=== PATIENT | female | born 1990 | race Two or more races ===

== ENCOUNTER 2017-06-13 16:44 | Emergency (ER) | payer OTHER ==
--- NOTE | 2017-06-13 19:31 | RAD ---
INDICATION: Early intrauterine gestation slow heart rate and large yolk sac COMPARISON: None TECHNIQUE: Transvaginal scans were performed before evaluation FINDINGS: The endovascular study confirms the presence of an intrauterine gestation with a prominent yolk sac. There is cardiac activity of 99 bpm. The age of gestation is between 6 weeks 3 days and 6 weeks 4 days based on the pole and gestational sac size. Both adnexa appear normal. The right ovary measures 4.3 x 2.2 x 1.4 cm in the left 4.2 x 2.5 x 2.8 cm. There is a small cyst on the left. IMPRESSION: EARLY INTRAUTERINE GESTATION. THERE IS A SLOW HEART RATE AND THERE IS A PROMINENT YOLK SAC. SUGGEST CLOSE FOLLOW-UP TO EVALUATE FOR VIABILITY.
[2017-06-13 19:47] LABS: Hematocrit 36 % (35-47); Hemoglobin 12.2 g/dl (12.0-16.0); Mean Corpuscular HGB Conc 34 g/dl (31-36); Mean Corpuscular Hemoglobin 32 pg (27-31); Mean Corpuscular Volume 95 fL (80-97); Mean Platelet Volume 8 um3 (7.4-10.4); Red Blood Count 3.84 10^6/ul (4.0-5.4); Red Cell Distribution Width 14 % (10.5-15); White Blood Count 10.2 10^3/ul (3.5-10.8)
[2017-06-13 20:02] LABS: BUN/Creatinine Ratio 22.1 (8-20); Calcium 9.6 mg/dL (8.6-10.3); EGFR African American 131.6 (>60); EGFR Non-African American 102.3 (>60); Potassium 4.1 mmol/L (3.5-5.0); Total Bilirubin 0.3 mg/dL (0.2-1.0)
--- NOTE | 2017-06-13 20:29 | ED ---
- HPI Summary HPI Summary: 27F at 6 weeks presents for u/s and lab work due [facility]. They saw a slow heart rate and an enlarged york sac on the u/s. She denies any vaginal bleeding or pain. no n/v/d. no dysuria, flank pain , urgency, or frequency. previous was a medical . This was the first u/s for this . no vaginal discharge. no fevers. is A+ - History of Current Complaint Chief Complaint: EDOBProblems Stated Complaint: ABNORMAL [facility]S [facility] Time Seen by Provider: 06/13/17 18:14 Pain Intensity: 0 - Assessment Hx Now: No - Allergies/Home Medications Allergies/Adverse Reactions: Allergies Allergy/AdvReac Type Severity Reaction Status Date / Time No Known Allergies Allergy Verified 05/11/13 19:42 PMH/Surg Hx/FS Hx/Imm Hx Endocrine/Hematology History: Denies: Hx Diabetes, Hx Thyroid Disease Cardiovascular History: Denies: Hx Hypertension Respiratory History: Denies: Hx Asthma, Hx Chronic Obstructive Pulmonary Disease (COPD) GI History: Denies: Hx Ulcer Infectious Disease History: No Infectious Disease History: Denies: Hx Hepatitis, Hx Human Immunodeficiency Virus (HIV), Traveled Outside the US in Last 30 Days - Family History Known Family History: Negative: Blood Disorder - Social History Alcohol Use: None Substance Use Type: Reports: None Smoking Status (MU): Never Smoked Tobacco Review of Systems Negative: Fever Negative: Chest Pain Negative: Shortness Of Breath Positive: Other - abnormal pregancy u/s. Negative: Abdominal Pain, Vomiting, Nausea All Other Systems Reviewed And Are Negative: Yes Physical Exam - Physical Exam Triage Information Reviewed: Yes Vital Signs Reviewed: Yes Appearance: Positive: Well-Appearing Skin: Positive: Warm, Dry Head/Face: Positive: Normal Head/Face Inspection Eyes: Positive: Normal, EOMI, STEPHANIE, Conjunctiva Clear ENT: Positive: Normal ENT inspection, Pharynx normal, TMs normal Respiratory/Lung Sounds: Positive: Clear to Auscultation, Breath Sounds Present Cardiovascular: Positive: Normal, RRR Abdomen Description: Positive: Nontender, Soft Bowel Sounds: Positive: Present Musculoskeletal: Positive: Normal Neurological: Positive: Normal Psychiatric: Positive: Normal Diagnostics - Vital Signs Vital Signs Temp Pulse Resp BP Pulse Ox 06/13/17 16:49 98.1 F 77 20 126/70 100 - Laboratory Lab Results: Lab Results 06/13/17 06/13/17 06/13/17 Range/Units 19:36 19:36 19:36 WBC 10.2 (3.5-10.8) 10^3/ul RBC 3.84 L (4.0-5.4) 10^6/ul Hgb 12.2 (12.0-16.0) g/dl Hct 36 (35-47) % MCV 95 (80-97) fL MCH 32 H (27-31) pg MCHC 34 (31-36) g/dl RDW 14 (10.5-15) % Plt Count 271 (150-450) 10^3/ul MPV 8 (7.4-10.4) um3 Neut % (Auto) 59.7 (38-83) % Lymph % (Auto) 30.3 (25-47) % [place] % (Auto) 8.1 (1-9) % Eos % (Auto) 1.1 (0-6) % Baso % (Auto) 0.8 (0-2) % Absolute Neuts (auto) 6.1 (1.5-7.7) 10^3/ul Absolute Lymphs (auto) 3.1 (1.0-4.8) 10^3/ul Absolute Monos (auto) 0.8 (0-0.8) 10^3/ul Absolute Eos (auto) 0.1 (0-0.6) 10^3/ul Absolute Basos (auto) 0.1 (0-0.2) 10^3/ul Absolute Nucleated RBC 0.01 10^3/ul Nucleated RBC % 0.1 INR (Anticoag Therapy) 0.88 L (0.89-1.11) APTT 27.0 (26.0-36.3) seconds Sodium (133-145) mmol/L Potassium (3.5-5.0) mmol/L Chloride (101-111) mmol/L Carbon Dioxide (22-32) mmol/L Anion Gap (2-11) mmol/L BUN (6-24) mg/dL Creatinine (0.51-0.95) mg/dL Est GFR ( Amer) (>60) Est GFR (Non-Af Amer) (>60) BUN/Creatinine Ratio (8-20) Glucose (70-100) mg/dL Calcium (8.6-10.3) mg/dL Total Bilirubin (0.2-1.0) mg/dL AST (13-39) U/L ALT (7-52) U/L Alkaline Phosphatase (34-104) U/L Total Protein (6.4-8.9) g/dL Albumin (3.2-5.2) g/dL Globulin (2-4) g/dL Albumin/Globulin Ratio (1-3) Beta HCG, Quant Blood Type A Positive 06/13/17 Range/Units 19:36 WBC (3.5-10.8) 10^3/ul RBC (4.0-5.4) 10^6/ul Hgb (12.0-16.0) g/dl Hct (35-47) % MCV (80-97) fL MCH (27-31) pg MCHC (31-36) g/dl RDW (10.5-15) % Plt Count (150-450) 10^3/ul MPV (7.4-10.4) um3 Neut % (Auto) (38-83) % Lymph % (Auto) (25-47) % [place] % (Auto) (1-9) % Eos % (Auto) (0-6) % Baso % (Auto) (0-2) % Absolute Neuts (auto) (1.5-7.7) 10^3/ul Absolute Lymphs (auto) (1.0-4.8) 10^3/ul Absolute Monos (auto) (0-0.8) 10^3/ul Absolute Eos (auto) (0-0.6) 10^3/ul Absolute Basos (auto) (0-0.2) 10^3/ul Absolute Nucleated RBC 10^3/ul Nucleated RBC % INR (Anticoag Therapy) (0.89-1.11) APTT (26.0-36.3) seconds Sodium 134 (133-145) mmol/L Potassium 4.1 (3.5-5.0) mmol/L Chloride 105 (101-111) mmol/L Carbon Dioxide 24 (22-32) mmol/L Anion Gap 5 (2-11) mmol/L BUN 15 (6-24) mg/dL Creatinine 0.68 (0.51-0.95) mg/dL Est GFR ( Amer) 131.6 (>60) Est GFR (Non-Af Amer) 102.3 (>60) BUN/Creatinine Ratio 22.1 H (8-20) Glucose 98 (70-100) mg/dL Calcium 9.6 (8.6-10.3) mg/dL Total Bilirubin 0.30 (0.2-1.0) mg/dL AST 18 (13-39) U/L ALT 25 (7-52) U/L Alkaline Phosphatase 35 (34-104) U/L Total Protein 7.0 (6.4-8.9) g/dL Albumin 4.0 (3.2-5.2) g/dL Globulin 3.0 (2-4) g/dL Albumin/Globulin Ratio 1.3 (1-3) Beta HCG, Quant Pending Blood Type Result Diagrams: 06/13/17 19:36 06/13/17 19:36 Lab Statement: Any lab studies that have been ordered have been reviewed, and results considered in the medical decision making process. - Ultrasound No standard instances Ultrasound Interpretation: Positive (See Comments) - IMPRESSION: EARLY INTRAUTERINE GESTATION. THERE IS A SLOW HEART RATE AND THERE IS A PROMINENT YOLK SAC. SUGGEST CLOSE FOLLOW-UP TO EVALUATE FOR VIABILITY. Ultrasound Interpretation Completed By: Radiologist Course/Dx - Course Course Of Treatment: 27F at 6 weeks presents for u/s and lab work due [facility]. They saw a slow heart rate and an enlarged york sac on the u/s. She denies any vaginal bleeding or pain. no n/v/ d. no dysuria, flank pain, urgency, or frequency. previous was a medical . This was the first u/s for this . no vaginal discharge. no fevers. nontender abdomen. u/s shows THERE IS A SLOW HEART RATE AND THERE [place] [id number]. will need follow up in 48 hours for repeat labs. patient undertands and agrees with plan. - Differential Diagnosis/HQI/PQRI: Spontaneous , Threatened , Intrauterine - Diagnoses Provider Diagnoses: Intrauterine Discharge - Discharge Plan Condition: Good Disposition: HOME Patient Education Materials: Threatened Miscarriage (ED) Referrals: No Primary Care Phys,NOPCP [Primary Care Provider] - Torito Baca MD [Medical Doctor] - Additional Instructions: The education provided is for your information. You may or may not have a miscarriage at this point. Follow up with OBGYN as will need repeat HCG level drawn to trend Return to ED if develop severe abdominal pain, fever, severe bleeding with symptoms such as lightheadedness or any new or worsening symptoms
[2017-06-13 20:48] VITALS: BP 119/73
[2017-06-13 21:14] LABS: Urine Bilirubin Negative (Negative); Urine Glucose Negative (Negative); Urine Nitrite Negative (Negative)
== END 2017-06-13 21:01 | disposition home or self-care (01) ==
LOC: ED 16:44
DX: Z34.81 Encounter for supervision of other normal pregnancy, first trimester (principal)
CPT/HCPCS: 36415; 76817; 80053; 81003; 84702; 85025; 85610; 85730; 86900; 86901; 99284

== ENCOUNTER 2017-07-20 22:53 | Emergency (ER) | payer OTHER ==
[2017-07-20] MEDS ORDERED: Morphine INJ* 4 MG/ML 1 ML CARPUJECT IV ONE (23:26)
[2017-07-21 00:23] LABS: Hematocrit 33 % (35-47); Hemoglobin 11.4 g/dl (12.0-16.0); Mean Corpuscular HGB Conc 34 g/dl (31-36); Mean Corpuscular Hemoglobin 32 pg (27-31); Mean Corpuscular Volume 94 fL (80-97); Mean Platelet Volume 8 um3 (7.4-10.4); Red Blood Count 3.55 10^6/ul (4.0-5.4); Red Cell Distribution Width 14 % (10.5-15); White Blood Count 10.7 10^3/ul (3.5-10.8)
[2017-07-21 00:33] LABS: BUN/Creatinine Ratio 21.7 (8-20); Calcium 9.2 mg/dL (8.6-10.3); EGFR African American 129.4 (>60); EGFR Non-African American 100.6 (>60); Globulin 2.8 g/dL (2-4); Potassium 3.7 mmol/L (3.5-5.0); Total Bilirubin 0.4 mg/dL (0.2-1.0); Total Protein 6.8 g/dL (6.4-8.9)
[2017-07-21] MEDS ORDERED: NS 0.9% 1000 ML* 1,000 ML IV ONE (01:01)
--- NOTE | 2017-07-21 03:43 | ED ---
De Su Nikita, scribed for Rakesh Kim MD on 07/20/17 at 2314 . GI/ HPI - HPI Summary HPI Summary: This patient is a 27 year old F BIBA to ED with a chief complaint of miscarriage since earlier today. Pt is 12 weeks . Pt has been having miscarriage x3 weeks and was due to have a D&C in 3 days. Bleeding and pain increased today at 1830. The CC is described as intermittent. The patient rates the pain 10/10 in severity. Symptoms aggravated by nothing. Symptoms alleviated by nothing. Patient reports vomiting, chills, vaginal bleeding and clotting, passing tissue, lower abdominal pain and cramping, and back pain. Patient denies fowl smells or urinary symptoms. - History of Current Complaint Chief Complaint: EDOBProblems Stated Complaint: POSS MISSCARRIAGE Hx Obtained From: Patient Hx Last Menstrual Period: 2 weeks ago Onset/Duration: Started Days Ago, Still Present Timing: Constant, Lasting Days Severity: Severe Current Severity: Severe Vaginal Bleeding Description: Clots Pain Intensity: 10 Location of Pain: Other - lower abdomen Associated Signs and Symptoms: Positive: Other: - Patient reports vomiting, chills, vaginal bleeding and clotting, passing tissue, lower abdominal pain and cramping, and back pain. Patient denies fowl smells or urinary symptoms. - Allergy/Home Medications Allergies/Adverse Reactions: Allergies Allergy/AdvReac Type Severity Reaction Status Date / Time No Known Allergies Allergy Verified 05/11/13 19:42 PMH/Surg Hx/FS Hx/Imm Hx Endocrine/Hematology History: Denies: Hx Diabetes, Hx Thyroid Disease Cardiovascular History: Denies: Hx Hypertension Respiratory History: Denies: Hx Asthma, Hx Chronic Obstructive Pulmonary Disease (COPD) GI History: Denies: Hx Ulcer Infectious Disease History: No Infectious Disease History: Denies: Hx Hepatitis, Hx Human Immunodeficiency Virus (HIV), Traveled Outside the US in Last 30 Days - Family History Known Family History: Negative: Blood Disorder - Social History Alcohol Use: None Substance Use Type: Reports: None Smoking Status (MU): Never Smoked Tobacco Review of Systems Positive: Chills Positive: Abdominal Pain - lower abdominal pain and cramping, Vomiting Positive: other - vaginal bleeding and clotting, passing tissue; denies fowl smells and other urinary symptoms Positive: Other - back pain All Other Systems Reviewed And Are Negative: Yes Physical Exam Triage Information Reviewed: Yes Vital Signs On Initial Exam: Initial Vitals BP 119/70 07/20/17 23:05 Vital Signs Reviewed: Yes Appearance: Positive: Well-Appearing - Speaking full sentences, Well-Nourished, Pain Distress - Pt is exhibiting pain and mild distress Skin: Positive: Warm, Dry, Other - no rash Head/Face: Positive: Normal Head/Face Inspection Eyes: Positive: Normal ENT: Positive: Normal ENT inspection Neck: Positive: Supple, Nontender Respiratory/Lung Sounds: Positive: Clear to Auscultation Cardiovascular: Positive: Normal, Other - Normal peripheral pulses Abdomen Description: Positive: Soft, Other: - Generalized lower abdominal tenderness Bowel Sounds: Positive: Present Musculoskeletal: Positive: Normal, Strength/ROM Intact Neurological: Positive: Normal, Alert, Oriented to Person Place, Time Psychiatric: Positive: Normal Diagnostics - Vital Signs Vital Signs Temp Pulse Resp BP Pulse Ox 07/20/17 23:07 65 98 07/20/17 23:06 99.2 F 88 16 119/70 98 07/20/17 23:05 119/70 - Laboratory Lab Results: Lab Results 07/20/17 07/20/17 07/20/17 Range/Units 23:55 23:55 23:55 WBC 10.7 (3.5-10.8) 10^3/ul RBC 3.55 L (4.0-5.4) 10^6/ul Hgb 11.4 L (12.0-16.0) g/dl Hct 33 L (35-47) % MCV 94 (80-97) fL MCH 32 H (27-31) pg MCHC 34 (31-36) g/dl RDW 14 (10.5-15) % Plt Count 317 (150-450) 10^3/ul MPV 8 (7.4-10.4) um3 Neut % (Auto) 87.4 H (38-83) % Lymph % (Auto) 8.9 L (25-47) % [place] % (Auto) 3.2 (1-9) % Eos % (Auto) 0.1 (0-6) % Baso % (Auto) 0.4 (0-2) % Absolute Neuts (auto) 9.4 H (1.5-7.7) 10^3/ul Absolute Lymphs (auto) 1.0 (1.0-4.8) 10^3/ul Absolute Monos (auto) 0.3 (0-0.8) 10^3/ul Absolute Eos (auto) 0 (0-0.6) 10^3/ul Absolute Basos (auto) 0 (0-0.2) 10^3/ul Absolute Nucleated RBC 0 10^3/ul Nucleated RBC % 0 INR (Anticoag Therapy) 0.96 (0.77-1.02) APTT 27.0 (26.0-36.3) seconds Sodium 139 (133-145) mmol/L Potassium 3.7 (3.5-5.0) mmol/L Chloride 109 (101-111) mmol/L Carbon Dioxide 23 (22-32) mmol/L Anion Gap 7 (2-11) mmol/L BUN 15 (6-24) mg/dL Creatinine 0.69 (0.51-0.95) mg/dL Est GFR ( Amer) 129.4 (>60) Est GFR (Non-Af Amer) 100.6 (>60) BUN/Creatinine Ratio 21.7 H (8-20) Glucose 115 H (70-100) mg/dL Lactic Acid (0.5-2.0) mmol/L Calcium 9.2 (8.6-10.3) mg/dL Total Bilirubin 0.40 (0.2-1.0) mg/dL AST 22 (13-39) U/L ALT 28 (7-52) U/L Alkaline Phosphatase 28 L (34-104) U/L Total Protein 6.8 (6.4-8.9) g/dL Albumin 4.0 (3.2-5.2) g/dL Globulin 2.8 (2-4) g/dL Albumin/Globulin Ratio 1.4 (1-3) Blood Type Antibody Screen 07/20/17 07/21/17 Range/Units 23:55 03:03 WBC (3.5-10.8) 10^3/ul RBC (4.0-5.4) 10^6/ul Hgb (12.0-16.0) g/dl Hct (35-47) % MCV (80-97) fL MCH (27-31) pg MCHC (31-36) g/dl RDW (10.5-15) % Plt Count (150-450) 10^3/ul MPV (7.4-10.4) um3 Neut % (Auto) (38-83) % Lymph % (Auto) (25-47) % [place] % (Auto) (1-9) % Eos % (Auto) (0-6) % Baso % (Auto) (0-2) % Absolute Neuts (auto) (1.5-7.7) 10^3/ul Absolute Lymphs (auto) (1.0-4.8) 10^3/ul Absolute Monos (auto) (0-0.8) 10^3/ul Absolute Eos (auto) (0-0.6) 10^3/ul Absolute Basos (auto) (0-0.2) 10^3/ul Absolute Nucleated RBC 10^3/ul Nucleated RBC % INR (Anticoag Therapy) (0.77-1.02) APTT (26.0-36.3) seconds Sodium (133-145) mmol/L Potassium (3.5-5.0) mmol/L Chloride (101-111) mmol/L Carbon Dioxide (22-32) mmol/L Anion Gap (2-11) mmol/L BUN (6-24) mg/dL Creatinine (0.51-0.95) mg/dL Est GFR ( Amer) (>60) Est GFR (Non-Af Amer) (>60) BUN/Creatinine Ratio (8-20) Glucose (70-100) mg/dL Lactic Acid 0.8 (0.5-2.0) mmol/L Calcium (8.6-10.3) mg/dL Total Bilirubin (0.2-1.0) mg/dL AST (13-39) U/L ALT (7-52) U/L Alkaline Phosphatase (34-104) U/L Total Protein (6.4-8.9) g/dL Albumin (3.2-5.2) g/dL Globulin (2-4) g/dL Albumin/Globulin Ratio (1-3) Blood Type A Positive Antibody Screen Negative Result Diagrams: 07/20/17 23:55 07/20/17 23:55 Lab Statement: Any lab studies that have been ordered have been reviewed, and results considered in the medical decision making process. - Ultrasound No standard instances Ultrasound Interpretation Completed By: Radiologist - US reveals a 2.6 cm x 1.9 cm x 3.1 cm (7 weeks 5 days) gestational sac is seen in the vaginal canal. No pole is observed. There are blood products in the cervical canal. These findings represent failed gestation with expulsion of the gestational sac. Normal ovaries bilaterally. ED physician has reviewed this radiology report and agrees. Re-Evaluation - Re-Evaluation First Eval Change: Improved - much improved after meds and fluids GIGU Course/Dx - Course Assessment/Plan: Instructions to follow up with an clinical nurse occupational medicine for re-eval and US. Pt agrees to and understands discharge instructions. - Diagnoses Differential Diagnoses - Female: Other - incomplete Provider Diagnoses: Incomplete Discharge - Discharge Plan Condition: Stable Disposition: HOME Prescriptions: Ondansetron ODT TAB* [Zofran 4 MG Odt TAB*] 4 mg PO Q6H PRN #10 tab.odt PRN Reason: Nausea oxyCODONE/Acetamin 5/325 MG* [Percocet 5/325 TAB*] 1 tab PO Q6H PRN #10 tab MDD 4 tab PRN Reason: Pain - Moderate To Severe Patient Education Materials: Miscarriage (ED) Referrals: [facility] [Provider Group] - 7 Days Clay Corrigan MD [Medical Doctor] - 7 Days Additional Instructions: PLEASE SEE YOUR BASS [facility]ING [facility]ER PREVIOUSLY SCHEDULE FOR YOUR D+C PROCEDURE PLEASE RETURN TO THE ED FOR ANY WORSENING OR CONCERNING SYMPTOMS. PLEASE MAKE AN APPOINTMENT TO SEE YOUR PRIMARY CARE DOCTOR TO BE SEEN WITHIN 1 WEEK. The documentation as recorded by the De wan Nikita accurately reflects the service I personally performed and the decisions made by Julio parham Dong, MD.
[2017-07-21] MEDS ORDERED: oxyCODONE/Acetamin 5/325 MG* TAB PO ONE (03:56)
[2017-07-21] MEDS ORDERED: Ondansetron ODT TAB* 4 MG PO ONE (03:57)
[2017-07-21] MEDS ORDERED: oxyCODONE/Acetamin 5/325 MG* TAB ONE (03:59)
[2017-07-21 04:09] VITALS: BP 97/62
--- NOTE | 2017-07-21 08:03 | RAD ---
HISTORY: Vaginal bleeding, , gestational age by previous ultrasound of 11 weeks and 1 day COMPARISONS: June 13, 2017 TECHNIQUE: Multiple transverse and longitudinal ultrasound images were obtained of the pelvis using grayscale and color Doppler imaging using the endovaginal transducer. FINDINGS: UTERUS: The uterus is normal in shape, size, contour, and echotexture. GESTATION: A gestational sac is identified, without pole. The gestational sac is low within the lower cervix/upper vagina.. The mean sac diameter measures 2.52 cm for a gestational age of 7 weeks, 5 days. The SHAI is March 03, 2015. This is discordant with the previous examination.. cardiac motion is not detected. Gross movement is not identified. anatomy cannot be assessed secondary to early dates. There are no retroplacental fluid collections. CUL-DE-SAC: There is no free fluid within the cul-de-sac. RIGHT OVARY: The right ovary measures 3.9 x 3.1 x 2.3 cm. LEFT OVARY: The left ovary measures 4.2 x 2.2 x 2.7 cm. BLADDER: The bladder is not well visualized. IMPRESSION: A LOW-LYING GESTATIONAL SAC IS NOTED WITHOUT POLE. THE GESTATIONAL SAC SIZE IS DISCORDANT WITH AGE BY DATES. THE APPEARANCE IS MOST CONSISTENT WITH AN IN PROGRESS. RECOMMEND ATTENTION ON FOLLOW-UP IMAGING
== END 2017-07-21 04:09 | disposition home or self-care (01) ==
LOC: ED 22:53
DX: O03.4 Incomplete spontaneous abortion without complication (principal); R10.30 Lower abdominal pain, unspecified; R68.83 Chills (without fever); M54.9 Dorsalgia, unspecified
CPT/HCPCS: 36415; 76801; 80053; 83605; 84702; 85025; 85610; 85730; 86850; 86900; 86901; 99284; A9270-GY; J2270

== ENCOUNTER 2018-01-27 20:49 | Emergency (ER) | payer SELFPAY ==
[2018-01-27] MEDS ORDERED: NS 0.9% 1000 ML* 1,000 ML IV ONE (22:24)
[2018-01-27] MEDS ORDERED: Ondansetron ODT TAB* 4 MG PO ONE (22:39)
[2018-01-27 22:50] LABS: ABS Basophils 0 10^3/ul (0-0.2); ABS Eosinophils 0 10^3/ul (0-0.6); ABS Lymphocytes 1.2 10^3/ul (1.0-4.8); ABS Monocytes 0.4 10^3/ul (0-0.8); ABS Neutrophils 7.1 10^3/ul (1.5-7.7); ABS Nucleated RBC 0 10^3/ul; Eosinophil % 0 % (0-6); Hematocrit 42 % (35-47); Hemoglobin 14.3 g/dl (12.0-16.0); Lymphocyte % 13.5 % (25-47); Mean Corpuscular HGB Conc 34 g/dl (31-36); Mean Corpuscular Hemoglobin 32 pg (27-31); Mean Corpuscular Volume 93 fL (80-97); Nucleated Red Blood Cells % 0.1; Platelet Count 260 10^3/ul (150-450); Red Blood Count 4.52 10^6/ul (4.00-5.40); Red Cell Distribution Width 14 % (10.5-15); White Blood Count 8.7 10^3/ul (3.5-10.8)
[2018-01-27 23:07] LABS: EGFR Non-African American 67.1 (>60)
--- NOTE | 2018-01-27 23:54 | ED ---
GI/ HPI - HPI Summary HPI Summary: 27-year-old female presents with nausea vomiting diarrhea for the past 2 days. She states she had some abnormal tasting beef in [place] and develop symptoms shortly after. No one else is sick. She denies any blood in her stool. She has not been able to keep anything down. She denies any chest pain shortness of breath or cough. She has no medical conditions. No pain with urination. No flank pain. No abnormal vaginal discharge. Pain when occurs is diffuse after vomiting. No headache. no medical conditions. - History of Current Complaint Chief Complaint: EDNauseaVomitDiarrh Time Seen by Provider: 01/27/18 22:17 Stated Complaint: NAUSEA/VOMITING Hx Last Menstrual Period: 2 weeks ago Pain Intensity: 6 - Allergy/Home Medications Allergies/Adverse Reactions: Allergies Allergy/AdvReac Type Severity Reaction Status Date / Time No Known Allergies Allergy Verified 01/27/18 21:05 PMH/Surg Hx/FS Hx/Imm Hx Endocrine/Hematology History: Denies: Hx Diabetes, Hx Thyroid Disease Cardiovascular History: Denies: Hx Hypertension Respiratory History: Denies: Hx Asthma, Hx Chronic Obstructive Pulmonary Disease (COPD) GI History: Denies: Hx Ulcer Infectious Disease History: No Infectious Disease History: Reports: Traveled Outside the in Last 30 Days - [place] Denies: Hx Hepatitis, Hx Human Immunodeficiency Virus (HIV) - Family History Known Family History: Negative: Blood Disorder - Social History Alcohol Use: Rare Substance Use Type: Reports: None Smoking Status (MU): Never Smoked Tobacco Review of Systems Negative: Fever Negative: Chest Pain Negative: Shortness Of Breath Positive: Abdominal Pain, Vomiting, Diarrhea, Nausea All Other Systems Reviewed And Are Negative: Yes Physical Exam Triage Information Reviewed: Yes Vital Signs On Initial Exam: Initial Vitals Temp Pulse Resp BP Pulse Ox 99.0 F 72 16 121/83 100 01/27/18 21:03 01/27/18 21:03 01/27/18 21:03 01/27/18 21:03 01/27/18 21:03 Vital Signs Reviewed: Yes Appearance: Positive: Well-Appearing Skin: Positive: Warm, Dry Head/Face: Positive: Normal Head/Face Inspection Eyes: Positive: Normal, EOMI, STEPHANIE, Conjunctiva Clear ENT: Positive: Normal ENT inspection, Pharynx normal, TMs normal Respiratory/Lung Sounds: Positive: Clear to Auscultation, Breath Sounds Present Cardiovascular: Positive: Normal, RRR Abdomen Description: Positive: Nontender, Soft Bowel Sounds: Positive: Present Musculoskeletal: Positive: Normal Neurological: Positive: Normal Psychiatric: Positive: Normal Diagnostics - Vital Signs Vital Signs Temp Pulse Resp BP Pulse Ox 01/27/18 23:20 52 121/68 100 01/27/18 23:00 54 100 01/27/18 22:20 65 121/83 100 01/27/18 21:03 99.0 F 72 16 121/83 100 - Laboratory Lab Results: Lab Results 01/27/18 01/27/18 Range/Units 22:43 22:43 WBC 8.7 (3.5-10.8) 10^3/ul RBC 4.52 (4.00-5.40) 10^6/ul Hgb 14.3 (12.0-16.0) g/dl Hct 42 (35-47) % MCV 93 (80-97) fL MCH 32 H (27-31) pg MCHC 34 (31-36) g/dl RDW 14 (10.5-15) % Plt Count 260 (150-450) 10^3/ul MPV 9.0 (7.4-10.4) um3 Neut % (Auto) 81.7 (38-83) % Lymph % (Auto) 13.5 L (25-47) % [place] % (Auto) 4.5 (0-7) % Eos % (Auto) 0 (0-6) % Baso % (Auto) 0.3 (0-2) % Absolute Neuts (auto) 7.1 (1.5-7.7) 10^3/ul Absolute Lymphs (auto) 1.2 (1.0-4.8) 10^3/ul Absolute Monos (auto) 0.4 (0-0.8) 10^3/ul Absolute Eos (auto) 0 (0-0.6) 10^3/ul Absolute Basos (auto) 0 (0-0.2) 10^3/ul Absolute Nucleated RBC 0 10^3/ul Nucleated RBC % 0.1 Sodium 137 L (139-145) mmol/L Potassium 4.0 (3.5-5.0) mmol/L Chloride 103 (101-111) mmol/L Carbon Dioxide 24 (22-32) mmol/L Anion Gap 10 (2-11) mmol/L BUN 15 (6-24) mg/dL Creatinine 0.98 H (0.51-0.95) mg/dL Est GFR ( Amer) 86.3 (>60) Est GFR (Non-Af Amer) 67.1 (>60) BUN/Creatinine Ratio 15.3 (8-20) Glucose 115 H (70-100) mg/dL Calcium 10.5 H (8.6-10.3) mg/dL Total Bilirubin 0.90 (0.2-1.0) mg/dL AST 19 (13-39) U/L ALT 18 (7-52) U/L Alkaline Phosphatase 41 (34-104) U/L C-Reactive Protein 1.87 (< 5.00) mg/L Total Protein 8.0 (6.4-8.9) g/dL Albumin 4.6 (3.2-5.2) g/dL Globulin 3.4 (2-4) g/dL Albumin/Globulin Ratio 1.4 (1-3) Lipase 20 (11.0-82.0) U/L Beta HCG, Quant 4.03 mIU/mL Result Diagrams: 01/27/18 22:43 01/27/18 22:43 Lab Statement: Any lab studies that have been ordered have been reviewed, and results considered in the medical decision making process. Re-Evaluation - Re-Evaluation First Eval Re-Evaluation Time: 00:35 Change: Improved Comment: feeling better after fluids and zofran GIGU Course/Dx - Course Course Of Treatment: 27-year-old female presents with nausea vomiting diarrhea for the past 2 days. She states she had some abnormal tasting beef in [place] and develop symptoms shortly after. No one else is sick. She denies any blood in her stool. She has not been able to keep anything down. She denies any chest pain shortness of breath or cough. She has no medical conditions. No pain with urination. No flank pain. No abnormal vaginal discharge. Pain when occurs is diffuse after vomiting. No headache. no medical conditions. On exam abdomen soft nontender. wbc normal. CRP normal. Patient unable to give stool sample in ED. Gave Fluids and Zofran and Feeling Better. Will Discharge with Zofran. Patient Understands Agrees with Plan. - Diagnoses Differential Diagnoses - Female: Gastroenteritis (Viral), Gastroenteritis ( Bacterial), Urinary Tract Infection Provider Diagnoses: Nausea vomiting and diarrhea Discharge - Sign-Out/Discharge Documenting (check all that apply): Discharge/Admit/Transfer - Discharge Plan Condition: Good Disposition: HOME Prescriptions: Ondansetron TAB* [Zofran 4 MG Tab*] 4 mg PO Q6H PRN #12 tab PRN Reason: Nausea Patient Education Materials: Gastroenteritis (ED) Referrals: [facility] [Outside] Additional Instructions: Can take Zofran every 6 hours as needed for nausea Drink small amounts of fluid as tolerated When able to eat follow BRAT diet: Bananas, rice, applesauce, toast Take ibuprofen or Tylenol for pain as needed every 6 hours Follow up with primary within 5 days Return to ED if develop fever that does not respond to Tylenol or ibuprofen, severe abdominal pain, or any new or worsening symptoms - Billing Disposition and Condition Condition: GOOD Disposition: Home
[2018-01-27] MEDS ORDERED: O ndansetron ODT 4MG 2TAB PRPK 4 MG PAK PO ONE (23:56)
[2018-01-28 01:04] VITALS: BP 131/53
== END 2018-01-28 01:03 | disposition home or self-care (01) ==
LOC: ED 20:49
DX: R11.2 Nausea with vomiting, unspecified (principal); R19.7 Diarrhea, unspecified
CPT/HCPCS: 36415; 80053; 83690; 84702; 85025; 86140; 96360; 99283; A9270-GY

== ENCOUNTER 2018-01-31 09:03 | Emergency (ER) | payer SELFPAY ==
[2018-01-31 10:08] LABS: ABS Basophils 0 10^3/ul (0-0.2); ABS Eosinophils 0 10^3/ul (0-0.6); ABS Lymphocytes 2.5 10^3/ul (1.0-4.8); ABS Monocytes 0.8 10^3/ul (0-0.8); ABS Neutrophils 5.4 10^3/ul (1.5-7.7); ABS Nucleated RBC 0 10^3/ul; Eosinophil % 0.4 % (0-6); Hematocrit 43 % (35-47); Hemoglobin 14.5 g/dl (12.0-16.0); Lymphocyte % 27.9 % (25-47); Mean Corpuscular HGB Conc 34 g/dl (31-36); Mean Corpuscular Hemoglobin 32 pg (27-31); Mean Corpuscular Volume 93 fL (80-97); Mean Platelet Volume 9.2 um3 (7.4-10.4); Nucleated Red Blood Cells % 0.2; Platelet Count 264 10^3/ul (150-450); Red Blood Count 4.59 10^6/ul (4.00-5.40); Red Cell Distribution Width 14 % (10.5-15); White Blood Count 8.8 10^3/ul (3.5-10.8)
[2018-01-31 10:18] LABS: INR 1.01 (0.77-1.02)
[2018-01-31 10:27] LABS: EGFR Non-African American 72.2 (>60)
[2018-01-31] MEDS ORDERED: PROCHLORPERAZINE INJ 5 MG/ML 2 ML VIAL IV ONE (10:51)
[2018-01-31] MEDS ORDERED: Potassium Chlor TAB* 20 MEQ TAB.ER PO ONE (10:51)
--- NOTE | 2018-01-31 11:36 | ED ---
Abdominal Pain/Female - HPI Summary HPI Summary: Patient here with nausea and vomiting since last visit to the ED. That day she reported she ate filet mignon at a wedding tonight before and thought it smelled funny. 4 hours later she went to eat again and develop nausea with vomiting. She's had nausea and vomiting since. She vomits about 2 times a day but has vomited as much as 6 times a day when this first started. She denies fever, chills, headache, chest pain, shortness of breath, diarrhea. She was given Zofran but every time she tries to take that she vomits it back up. ( Note she was given Zofran tablet not ODT). Her hCG was 0.4 to her last visit and she is about a week late for her.. Will recheck this again today. Last intercourse was a month ago and her partner is now locked up in penitentiary. She does have a history of gonorrhea however reports that was treated in retested without any residual effects. She does not feel that she has an ST-T or other vaginal infection today and she has no vaginal irritation, itching, abnormal discharge and no dysuria, urinary frequency, hematuria, flank pain. - History of Current Complaint Chief Complaint: EDNauseaVomitDiarrh Stated Complaint: NAUSEA/VOMITING Time Seen by Provider: 01/31/18 09:15 Hx Obtained From: Patient Hx Last Menstrual Period: 2 weeks ago Pain Intensity: 0 Allergies/Adverse Reactions: Allergies Allergy/AdvReac Type Severity Reaction Status Date / Time No Known Allergies Allergy Verified 01/31/18 09:10 PMH/Surg Hx/FS Hx/Imm Hx Endocrine/Hematology History: Denies: Hx Diabetes, Hx Thyroid Disease Cardiovascular History: Denies: Hx Hypertension Respiratory History: Denies: Hx Asthma, Hx Chronic Obstructive Pulmonary Disease (COPD) GI History: Denies: Hx Ulcer Infectious Disease History: No Infectious Disease History: Reports: Traveled Outside the [place] in Last 30 Days Denies: Hx Hepatitis, Hx Human Immunodeficiency Virus (HIV) - Family History Known Family History: Negative: Blood Disorder - Social History Alcohol Use: Occasionally Substance Use Type: Reports: None Smoking Status (MU): Former Smoker Physical Exam Vital Signs On Initial Exam: Initial Vitals Temp Pulse Resp BP Pulse Ox 98.5 F 85 18 131/86 97 01/31/18 09:05 01/31/18 09:05 01/31/18 09:05 01/31/18 09:05 01/31/18 09:05 Diagnostics - Vital Signs Vital Signs Temp Pulse Resp BP Pulse Ox 01/31/18 11:00 73 100 01/31/18 10:46 61 135/97 99 01/31/18 10:16 62 123/82 100 01/31/18 10:00 63 99 01/31/18 09:46 66 123/83 99 01/31/18 09:16 57 136/89 98 01/31/18 09:05 98.5 F 85 18 131/86 97 - Laboratory Lab Results: Lab Results 01/31/18 01/31/18 01/31/18 Range/Units 09:50 09:50 09:50 WBC 8.8 (3.5-10.8) 10^3/ul RBC 4.59 (4.00-5.40) 10^6/ul Hgb 14.5 (12.0-16.0) g/dl Hct 43 (35-47) % MCV 93 (80-97) fL MCH 32 H (27-31) pg MCHC 34 (31-36) g/dl RDW 14 (10.5-15) % Plt Count 264 (150-450) 10^3/ul MPV 9.2 (7.4-10.4) um3 Neut % (Auto) 61.8 (38-83) % Lymph % (Auto) 27.9 (25-47) % Hanson % (Auto) 9.4 H (0-7) % Eos % (Auto) 0.4 (0-6) % Baso % (Auto) 0.5 (0-2) % Absolute Neuts (auto) 5.4 (1.5-7.7) 10^3/ul Absolute Lymphs (auto) 2.5 (1.0-4.8) 10^3/ul Absolute Monos (auto) 0.8 (0-0.8) 10^3/ul Absolute Eos (auto) 0 (0-0.6) 10^3/ul Absolute Basos (auto) 0 (0-0.2) 10^3/ul Absolute Nucleated RBC 0 10^3/ul Nucleated RBC % 0.2 INR (Anticoag Therapy) 1.01 (0.77-1.02) APTT 25.6 L (26.0-36.3) seconds Sodium 137 (135-145) mmol/L Potassium 3.0 L (3.5-5.0) mmol/L Chloride 104 (101-111) mmol/L Carbon Dioxide 23 (22-32) mmol/L Anion Gap 10 (2-11) mmol/L BUN 13 (6-24) mg/dL Creatinine 0.92 (0.51-0.95) mg/dL Est GFR ( Amer) 92.8 (>60) Est GFR (Non-Af Amer) 72.2 (>60) BUN/Creatinine Ratio 14.1 (8-20) Glucose 100 (70-100) mg/dL Lactic Acid (0.5-2.0) mmol/L Calcium 9.4 (8.6-10.3) mg/dL Magnesium 2.3 (1.9-2.7) mg/dL Total Bilirubin 0.80 (0.2-1.0) mg/dL AST 14 (13-39) U/L ALT 15 (7-52) U/L Alkaline Phosphatase 38 (34-104) U/L C-Reactive Protein < 1.00 (< 5.00) mg/L Total Protein 7.5 (6.4-8.9) g/dL Albumin 4.1 (3.2-5.2) g/dL Globulin 3.4 (2-4) g/dL Albumin/Globulin Ratio 1.2 (1-3) Lipase 38 (11.0-82.0) U/L Beta HCG, Quant < 0.60 mIU/mL 01/31/18 Range/Units 09:50 WBC (3.5-10.8) 10^3/ul RBC (4.00-5.40) 10^6/ul Hgb (12.0-16.0) g/dl Hct (35-47) % MCV (80-97) fL MCH (27-31) pg MCHC (31-36) g/dl RDW (10.5-15) % Plt Count (150-450) 10^3/ul MPV (7.4-10.4) um3 Neut % (Auto) (38-83) % Lymph % (Auto) (25-47) % Hanson % (Auto) (0-7) % Eos % (Auto) (0-6) % Baso % (Auto) (0-2) % Absolute Neuts (auto) (1.5-7.7) 10^3/ul Absolute Lymphs (auto) (1.0-4.8) 10^3/ul Absolute Monos (auto) (0-0.8) 10^3/ul Absolute Eos (auto) (0-0.6) 10^3/ul Absolute Basos (auto) (0-0.2) 10^3/ul Absolute Nucleated RBC 10^3/ul Nucleated RBC % INR (Anticoag Therapy) (0.77-1.02) APTT (26.0-36.3) seconds Sodium (135-145) mmol/L Potassium (3.5-5.0) mmol/L Chloride (101-111) mmol/L Carbon Dioxide (22-32) mmol/L Anion Gap (2-11) mmol/L BUN (6-24) mg/dL Creatinine (0.51-0.95) mg/dL Est GFR ( Amer) (>60) Est GFR (Non-Af Amer) (>60) BUN/Creatinine Ratio (8-20) Glucose (70-100) mg/dL Lactic Acid 1.1 (0.5-2.0) mmol/L Calcium (8.6-10.3) mg/dL Magnesium (1.9-2.7) mg/dL Total Bilirubin (0.2-1.0) mg/dL AST (13-39) U/L ALT (7-52) U/L Alkaline Phosphatase (34-104) U/L C-Reactive Protein (< 5.00) mg/L Total Protein (6.4-8.9) g/dL Albumin (3.2-5.2) g/dL Globulin (2-4) g/dL Albumin/Globulin Ratio (1-3) Lipase (11.0-82.0) U/L Beta HCG, Quant mIU/mL Result Diagrams: 01/31/18 09:50 01/31/18 09:50 Lab Statement: Any lab studies that have been ordered have been reviewed, and results considered in the medical decision making process. Discharge - Discharge Plan Referrals: No Primary Care Phys,NOPCP [Primary Care Provider] -
[2018-01-31] MEDS ORDERED: NS 0.9% 1000 ML*IV.FLUID IV ONE (12:08)
[2018-01-31 12:09] LABS: Urine Appearance Cloudy; Urine Blood Negative (Negative); Urine Color Yellow; Urine Ketones 1+ (Negative); Urine Protein 1+(30 mg/dL) (Negative); Urine Specific Gravity 1.034 (1.010-1.030); Urine Urobilinogen Negative (Negative)
--- NOTE | 2018-01-31 12:36 | RAD ---
HISTORY: AB , N+V, epigastric pain COMPARISONS: August 06, 2014 TECHNIQUE: Multiple transverse and longitudinal ultrasound images were obtained of the right upper quadrant of the abdomen using grayscale and color Doppler imaging. FINDINGS: LIVER: The liver is normal in shape, size, contour, and echogenicity. There are no focal parenchymal masses. There is normal hepatopedal flow of the portal vein on Doppler imaging. BILIARY TREE: There is no intrahepatic or extrahepatic biliary dilatation. The common duct measures 0.2 cm. GALLBLADDER: The gallbladder is well-visualized. There is no cholelithiasis, gallbladder wall thickening, pericholecystic fluid, or sonographic Weber sign. PANCREAS: The head of the pancreas is unremarkable. The tail of the pancreas is not well visualized secondary to overlying bowel gas. RIGHT KIDNEY: The right kidney is normal in shape, size, contour, and echogenicity. There is no hydronephrosis or nephrolithiasis. The right kidney measures 10.6 x 4.9 x 4.1 cm. AORTA AND IVC: The aorta and IVC are unremarkable. FLUID: There are no pleural effusions. There is no free fluid within the hepatorenal recess. OTHER FINDINGS: None. IMPRESSION: NO ACUTE SONOGRAPHIC PATHOLOGY OF THE VISUALIZED PORTION OF THE ABDOMEN.
[2018-01-31 13:50] VITALS: BP 123/69
--- NOTE | 2018-02-02 16:36 | ED ---
Progress - Progress Note Progress Note: Patient's vaginal cultures positive for Gardnerella. Negative for Tova. No treatment was provided in the ED as patient wanted to wait for culture results before treating. Will advise Flagyl intravaginally 5 nights. Attempted to contact patient. Recording states "the customer you're trying to reach is not available. Call again later.". Will mail letter. vilma Gracia aware. Discharge - Sign-Out/Discharge Documenting (check all that apply): Post-Discharge Follow Up - Discharge Plan Condition: Stable Disposition: HOME Prescriptions: Ondansetron ODT TAB* [Zofran 4 MG Odt TAB*] 8 mg PO Q8H PRN #9 tab.odt PRN Reason: Nausea Patient Education Materials: Acute Nausea and Vomiting (ED) Forms: *Work Release Referrals: [facility] [Outside] No Primary Care Phys,NOPCP [Primary Care Provider] - Additional Instructions: The definitive cause of her nausea and vomiting was not identified today however you seemed to feel much better after receiving IV fluids, potassium and an antinausea medication. Additional nausea medicine has been sent here pharmacy however this is just for the next 3 days as needed because if you have ongoing nausea this needs to be followed up with further evaluation. If he do not have a PCP, please call the [facility] team (information provided here ) for follow-up. If symptoms worsen in the meantime, return to the emergency department. - Billing Disposition and Condition Condition: STABLE Disposition: Home
== END 2018-01-31 13:49 | disposition home or self-care (01) ==
LOC: ED 09:03
DX: R11.2 Nausea with vomiting, unspecified (principal); Z87.891 Personal history of nicotine dependence
CPT/HCPCS: 36415; 76705; 80053; 81003; 81015; 83605; 83690; 83735; 84702; 85025; 85610; 85730; 86140; 87480; 87491; 87510; 87591; 87661; 96361; 96374; 99283; A9270-GY; J0780